=== PATIENT | female | born 1940 | race Caucasian/White ===

== ENCOUNTER 2017-01-18 09:53 | Outpatient (CLI) | payer OTHER ==
--- NOTE | 2017-01-18 13:15 | DIAGNOSTIC IMAGING REPORT ---
PROCEDURE: US COMPLETE PELVIC W/TRANSVAG INDICATION: PMB TECHNIQUE: Transabdominal and endovaginal hoffmann scale and color Doppler sonographic images of the female pelvis were obtained. COMPARISON: None. FINDINGS: TRANSABDOMINAL SCANS: Moderate right hydronephrosis and dilation of the proximal right ureter. Mild left hydronephrosis versus extrarenal pelvis. TRANSVAGINAL SCANS: Atrophic uterus measures 6.5 x 3 x 4.7 cm. Scattered calcifications endometrium are present. Normal endometrium measures 3.8 mm. Right adnexal structure, probable ovary, measures 2.2 x 1.2 x 1.3 cm. Left ovary not visualized. No adnexal mass or free fluid in the cul-de-sac. IMPRESSION: 1. Uterine atrophy with small degenerative fibroids 2. Normal endometrium 3. Left ovary not visualized but no adnexal mass or free fluid in the cul-de-sac.
== END 2017-01-18 23:00 | disposition home or self-care (01) ==
LOC: US SRH 09:53
DX: D25.9 Leiomyoma of uterus, unspecified (principal); N85.8 Other specified noninflammatory disorders of uterus; K21.9 Gastro-esophageal reflux disease without esophagitis; E78.5 Hyperlipidemia, unspecified

== ENCOUNTER 2017-01-22 15:15 | Outpatient (CLI) | payer OTHER ==
--- NOTE | 2017-01-22 16:01 | DIAGNOSTIC IMAGING REPORT ---
PROCEDURE: MG BILATERAL SCREENING W/CAD INDICATION: SCREENING TECHNIQUE: Bilateral CC and MLO digital views. COMPARISON: Compared to 09/21/2014, 07/22/2013, and 05/28/2012. FINDINGS: Computer-aided detection applied. Moderately dense with a few dystrophic calcifications. No change. IMPRESSION: 1. Negative mammogram. RESULT CODE: 1- Negative. A. A negative report should not delay biopsy if a dominant or clinically suspicious mass is present. 10-15% of cancers are not identified by x-ray. B. A negative report may reinforce clinical impression. C. Adenosis and dense breasts may obscure an underlying neoplasm. D. False positive reports average 6-10%. E.. A yearly screening mammogram is recommended. A reminder letter will be scheduled.
== END 2017-01-22 23:00 ==
LOC: MAM SRH 15:15
DX: Z12.31 Encounter for screening mammogram for malignant neoplasm of breast (principal)

== ENCOUNTER 2017-04-16 08:23 | Outpatient (CLI) | payer OTHER ==
--- NOTE | 2017-04-18 11:46 | DIAGNOSTIC IMAGING REPORT ---
PROCEDURE: CT LOW-DOSE LUNG CA SCREENING CLINICAL INDICATION: FOLLOW UP CT. SMOKING TECHNIQUE: Low-dose helical CT images of the lungs without contrast were obtained and reconstructed at 2.5 mm intervals. MIP reformations in coronal and sagittal planes were created. Radiation dose 1.37 mGy. COMPARISON: Oldest available comparison: CT lung screening on 03/21/2016 and chest x-ray of (07/15/2013). FINDINGS: NODULES: There is a 4 mm nodular density at right posterior medial lung base (axial image 89 - - can be seen in retrospect on the prior study and appears unchanged. OTHER LUNG FINDINGS: Hyperinflation and chronic obstructive pulmonary disease. Bilateral upper lung parenchymal scarring. AIRWAY: Branches normally without narrowing or endobronchial nodule. PLEURA: No effusions, thickening, or pneumothorax. AORTA AND GREAT VESSELS: Normal caliber, moderate atherosclerotic calcification. PULMONARY ARTERIES: Normal. . HEART AND PERICARDIUM: Normal size without effusion, thickening. Coronary vascular calcifications. LYMPH NODES: No enlarged nodes visible. THORACIC SPINE: No suspicious lesion. Mild to moderate levoscoliosis and degenerative changes. changes. CHEST WALL: Normal. VISUALIZED UPPER ABDOMEN: Old granulomatous disease of the spleen and liver. IMPRESSION: 1. Chronic obstructive pulmonary disease. 2. There is a 4 mm nodular density in the right posterior medial lung base which can be seen (in retrospect) on prior study, with benign characteristics (stable-- probable old granuloma). 3. Biapical upper lung parenchymal scarring. 4. Old granulomatous disease of the spleen and liver. 5. Lung RADS Category 2- Benign appearance or behavior. 6. Recommend annual screening low-dose lung CT in 12 months (April 2018). All CT scans at this facility use dose modulation, iterative reconstruction, and/or weight-based dosing when appropriate to reduce radiation dose to as low as reasonably achievable.
== END 2017-04-16 23:00 ==
LOC: CT SRH 08:23 → LAB SRH 08:23 → CT SRH 08:30
DX: J44.9 Chronic obstructive pulmonary disease, unspecified (principal); F17.200 Nicotine dependence, unspecified, uncomplicated